=== PATIENT | male | born 1970 | race Caucasian/White ===

== ENCOUNTER 2023-05-14 12:06 | Emergency (ER) | payer OTHER ==
[~2023-05-14] VITALS: Ht 182.9 cm; Wt 91.0 kg
[2023-05-14 13:29] LABS: BASOPHILS % 0.5 % (0.0-2.0); EOSINOPHILS % 2.1 % (0.0-5.0); HEMATOCRIT. 51.5 % (42.0-52.0); HEMOGLOBIN. 17.8 g/dL (14.0-18.0); LYMPHOCYTES % 31.1 % (20.0-50.0); MEAN CORPUSCULAR HEMOGLOBIN 32.2 pg (28.0-32.0); MEAN CORPUSCULAR VOLUME 93.2 fL (80.0-94.0); MEAN PLATELET VOLUME 8.5 fl (7.4-10.4); MONOCYTES % 6.7 % (2.0-8.0); NEUTROPHILS % 59.6 % (40.0-76.0); PLATELET 249 x1000/uL (130-400); RED BLOOD CELL COUNT 5.53 mill/uL (4.7-6.1); RED CELL DISTRIBUTION WIDTH 13.8 % (11.6-14.6)
[2023-05-14 13:43] LABS: CHLORIDE 105 mEq/L (98-107)
[2023-05-14] MEDS ORDERED: ASPIRIN 325MG EC TABLET PO ONE (16:30)
[2023-05-14] MEDS ORDERED: ASPI-1497 MT (18:53)
[2023-05-14] MEDS ORDERED: TOPUD MT (18:53)
[2023-05-14 19:05] VITALS: BP 136/80
== END 2023-05-14 19:18 ==
LOC: ER 12:06
DX: R07.89 Other chest pain (principal); I10 Essential (primary) hypertension; Z86.73 Personal history of transient ischemic attack (TIA), and cerebral infarction without residual deficits
CPT/HCPCS: 36415; 71045; 80053; 83880; 84484; 85025; 93005; 99285